=== PATIENT | female | born 1945 ===

== ENCOUNTER 2020-10-23 09:03 | Day surgery (SDC) | payer OTHER ==
[~2020-10-23 09:03] MED LIST: LEXAPRO20 MG PO; MULTIVIT PO; TRAZODONE HCL150 MG PO; VITAMIN D PO; XANAX PO
[2020-10-23] MEDS ORDERED: COLACE100 MG PO (11:20)
[2020-10-23] MEDS ORDERED: PERCOCET 5-3251 EACH PO (11:20)
== END 2020-10-23 16:35 | disposition home or self-care (01) ==
LOC: CIR.AMB 09:03
PROVIDERS: ATTEND Surgery
DX: K64.8 Other hemorrhoids (principal); Z20.822 Contact with and (suspected) exposure to COVID-19; K64.4 Residual hemorrhoidal skin tags